=== PATIENT | male | born 1950 | race Caucasian/White ===

== ENCOUNTER 2016-11-14 16:00 | Emergency (ER) | payer OTHER ==
[~2016-11-14] VITALS: Ht 172.7 cm; Wt 148.0 kg
[~2016-11-14 16:00] MED LIST: BENI40TA3 PO; FURO1TAB62 PO; OXYC30TA62 PO
[2016-11-14 16:03] VITALS: BP 142/92; PULSE 92; RESP 16; TEMP 98.6; O2SAT 95
[2016-11-14] MEDS ORDERED: POTA1TAB4 PO (17:35)
[2016-11-14] MEDS ORDERED: CEPH-460 PO (17:47)
--- NOTE | 2016-11-14 17:57 | PD ---
HPI Chief Complaint: Skin Problem Time Seen by Provider: 17:47 Travel History International Travel<30 days: No Contact w/Intl Traveler<30days: No Traveled to known affect area: No History of Present Illness HPI 66-year-old male presents to the emergency room for evaluation of superficial skin tears to the left elbow and left calf that occurred just prior to arrival. Patient states he slipped out of a truck and cut his leg up against a metal bar. Does not know when he had his open wound. He did not fall and denies hitting his head or loss consciousness. Denies any significant pain or other injury. His cleaned the wounds thoroughly but states she could not get them to stop bleeding. Patient is not on any blood thinners. Last tetanus was 8 months ago. [facility] Past Medical History Anxiety: Yes Cardiovascular Problems: Yes (htn on meds) Hypertension: Yes Musculoskeletal: Yes (DJD;CHRONIC BACK PAIN with pain management) Past Surgical History Surgical History: No Previous Surgery Social History Alcohol Use: No Tobacco Use: No (quit 2 years ago) Substance Use: No Allergies-Medications (Allergen,Severity, Reaction): Coded Allergies: No Known Allergies (Verified , 11/14/16) Reported Meds & Prescriptions Reported Meds & Active Scripts Active Reported K-Tab (Potassium Chloride) 20 Meq Tab 20 Meq PO DAILY Benicar (Olmesartan) 40 Mg Tab 40 Mg PO DAILY Oxycontin (Oxycodone HCl) 30 Mg Tab 30 Mg PO QID NEB Lasix (Furosemide) 20 Mg Tab 20 Mg PO DAILY Review of Systems Except as stated in HPI: all other systems reviewed are Neg Physical Exam Narrative GENERAL: Well-nourished, morbidly obese male in no acute distress. Afebrile. Ambulatory. SKIN: Warm and dry. Superficial skin tear of left lower, posterior leg overlying chronic lower leg cellulitis. Skin is not well-approximated. Superficial skin tear of left posterior elbow over the olecranon. Skin revealed that was also not well approximated. HEAD: Normocephalic. EYES: No scleral icterus. No injection or drainage. NECK: Supple, trachea midline. No JVD or lymphadenopathy. Data Data Last Documented VS Vital Signs Date Time Temp Pulse Resp B/P Pulse Ox O2 Delivery O2 Flow Rate FiO2 11/14/16 16:03 98.6 92 16 142/92 95 Orders Wound Care (11/14/16 17:46) [facility] Medical Decision Making Medical Screen Exam Complete: Yes Emergency Medical Condition: Yes Medical Record Reviewed: Yes Differential Diagnosis Skin tear versus abrasion versus laceration Narrative Course 66-year-old male presents to the emergency room for evaluation of superficial skin tears to the left elbow and left calf that occurred just prior to arrival. Patient cut himself on a metal bar. He denies falling or any other injuries. Tetanus is up-to-date. Full range of motion of the left elbow. There is a 1 cm laceration that is extremely well approximated adjacent to the skin tear. This area was thoroughly cleansed and repaired using Steri-Strips and glue. Skin tear of the leg is overlying chronic cellulitis. For this, patient will be discharged with prescription for Keflex. Given wound care instructions and told to follow up with a primary care physician or return to the emergency room for worsening symptoms. He understands and agrees to this plan. Diagnosis Primary Impression: Skin tear of elbow without complication Qualified Code: S51.012A - Skin tear of elbow without complication, left, initial encounter Additional Impression: Skin tear of lower leg without complication Qualified Code: S81.812A - Skin tear of lower leg without complication, left, initial encounter Referrals: Primary Care Physician Patient Instructions: General Instructions, Skin Tear (ED) Additional Instructions: Rest and drink plenty of fluids. Keep wounds clean and dry. Apply triple antibiotic ointment and nonstick dressing daily. Take Keflex as directed, until gone. Follow-up with a primary care physician. Return to the emergency room for worsening symptoms. Med/Other Pt SpecificInfo: Prescription(s) given Scripts Cephalexin (Keflex)500 Mg [id number] Mg PO Q6H 7 Days Ref 0 Prov:Imani Deleon MD 11/14/16 Disposition: 01 DISCHARGE HOME Condition: Stable Ny Garcia Nov 14, 2016 17:56
== END 2016-11-14 18:52 | disposition home or self-care (01) ==
LOC: PHEFT 16:00
DX: S51.012A Laceration without foreign body of left elbow, initial encounter (principal); S81.812A Laceration without foreign body, left lower leg, initial encounter; I10 Essential (primary) hypertension; W45.8XXA Other foreign body or object entering through skin, initial encounter; W18.09XA Striking against other object with subsequent fall, initial encounter; Y93.89 Activity, other specified; Y92.89 Other specified places as the place of occurrence of the external cause; Y99.8 Other external cause status; Z87.891 Personal history of nicotine dependence
CPT/HCPCS: 99283

== ENCOUNTER 2017-10-04 17:47 | Emergency (ER) | payer OTHER ==
[~2017-10-04] VITALS: Ht 172.7 cm; Wt 156.6 kg
[~2017-10-04 17:47] MED LIST changes: +BENI40TA29 PO; -BENI40TA3 PO; +CEPH-460 PO; +POTA1TAB4 PO
[2017-10-04 17:52] VITALS: BP 138/73; PULSE 95; RESP 18; TEMP 98.2
[2017-10-04] MEDS ORDERED: VENTAER INH (18:32)
[2017-10-04] MEDS ORDERED: AZIT250T3 PO (18:32)
[2017-10-04] MEDS ORDERED: PRED20 PO (18:32)
--- NOTE | 2017-10-04 18:33 | PD ---
HPI Chief Complaint: Cold / Flu Symptoms Time Seen by Provider: 18:22 Travel History International Travel<30 days: No Contact w/Intl Traveler<30days: No Traveled to known affect area: No History of Present Illness HPI 66-year-old male here for evaluation of nonproductive cough and sore throat 4 days. He is reporting intermittent wheezing during coughing episodes. He denies fever but reports chills. He denies chest pain, shortness of breath. His was sick with bronchitis pneumonia last week. Symptoms severity moderate. No alleviating factors. PFSH Past Medical History Hx Anticoagulant Therapy: Yes (asa 81mg) Anxiety: Yes Cardiovascular Problems: Yes (htn on meds) Hypertension: Yes Medical other: Yes (BILATERAL LOWER EXTREMITY EDEMA/FLUID RETENTION) Musculoskeletal: Yes (DJD;CHRONIC BACK PAIN with pain management) Influenza Vaccination: No Social History Alcohol Use: No Tobacco Use: No (quit 2 years ago) Substance Use: No Allergies-Medications (Allergen,Severity, Reaction): Coded Allergies: No Known Allergies (Verified Adverse Reaction, Unknown, 10/04/17) Reported Meds & Prescriptions Reported Meds & Active Scripts Active Reported Benicar (Olmesartan) 40 Mg Tab 40 Mg PO DAILY Review of Systems Except as stated in HPI: all other systems reviewed are Neg General / Constitutional: Positive: Chills Cardiovascular: No: Chest Pain or Discomfort Respiratory: Positive: Cough, Wheezing Gastrointestinal: Positive: Nausea Genitourinary: No: Dysuria Physical Exam Narrative GENERAL: Well-nourished, well-developed patient. Patient nontoxic appearing SKIN: Focused skin assessment warm/dry. HEAD: Normocephalic. EYES: No scleral icterus. No injection or drainage. THROAT: Posterior pharyngeal erythema. No a exudate. NECK: Supple, trachea midline. No JVD or lymphadenopathy. CARDIOVASCULAR: Regular rate and rhythm without murmurs, gallops, or rubs. RESPIRATORY: Breath sounds equal bilaterally. No accessory muscle use. Questionable rhonchi. GASTROINTESTINAL: Abdomen soft, non-tender, nondistended. Data Data Last Documented VS Vital Signs Date Time Temp Pulse Resp B/P (MAP) Pulse Ox O2 Delivery O2 Flow Rate FiO2 10/04/17 17:52 98.2 95 18 138/73 (94) MDM Medical Decision Making Medical Screen Exam Complete: Yes Emergency Medical Condition: Yes Differential Diagnosis Bronchitis, pneumonia, influenza Narrative Course 66-year-old male here with productive cough and reported wheezing has 4 days. Patient is well-appearing. His vital signs are stable. He has questionable rhonchi on exam. Patient was treated for bronchitis Diagnosis Primary Impression: Bronchitis Referrals: Primary Care Physician Additional Instructions: Stay well hydrated by drinking plenty of fluids. Follow-up the primary doctor for recheck. Return if he developed new or worsening symptoms. Scripts Albuterol 18 GM Inh (Ventolin Hfa 18 GM Inh) 90 Mcg/Act Aer 2 PUFF INH Q4H Y for SHORTNESS OF BREATH, #1 INHALER 0 Refills Prov: Eliana Jaramillo 10/04/17 Prednisone (Prednisone) 20 Mg Tab 40 MG PO DAILY, #8 TAB 0 Refills Take 40 mg (2 tablets) daily for 5 days Prov: Eliana Jaramillo 10/04/17 Azithromycin (Azithromycin) 250 Mg Tab 250 MG PO DIRECTED for Infection, #6 TAB 0 Refills Take 2 tabs (500 mg) on day 1 then 1 tab daily x 4 days. Prov: Eliana Jaramillo 10/04/17 Disposition: 01 DISCHARGE HOME Condition: Stable Eliana Jaramillo Oct 04, 2017 18:33
== END 2017-10-04 18:38 | disposition home or self-care (01) ==
LOC: PHEFT 17:47
DX: J40 Bronchitis, not specified as acute or chronic (principal); Z79.82 Long term (current) use of aspirin; I10 Essential (primary) hypertension
CPT/HCPCS: 99284

== ENCOUNTER 2018-01-26 12:28 | Emergency (ER) | payer OTHER ==
[~2018-01-26 12:28] MED LIST changes: +AZIT250T3 PO; -CEPH-460 PO; -FURO1TAB62 PO; -OXYC30TA62 PO; -POTA1TAB4 PO; +PRED20 PO; +VENTAER INH
[2018-01-26 13:06] VITALS: BP 144/70; PULSE 80; RESP 22; TEMP 97.7; O2SAT 94
[2018-01-26] MEDS ORDERED: OXYC30TA PO (14:31)
[2018-01-26] MEDS ORDERED: FURO1TAB62 PO (14:32)
[2018-01-26] MEDS ORDERED: CLIN150C14 PO (14:54)
[2018-01-26] MEDS ORDERED: LIDOCAINE HCL 1% PF 30 ML VIAL INFIL ONE (15:00)
[2018-01-26] MEDS ORDERED: CLINDAMYCIN 150 MG CAP PO SCH (15:00)
[2018-01-26] MEDS ORDERED: SULFAMETHOXAZOLE-TRIMETHOPRIM DS 800-160 MG TAB PO ONE (15:00)
[2018-01-26] MEDS ORDERED: CEPHALEXIN MONOHYDRATE 500 MG CAP PO ONE (15:00)
[2018-01-26] MEDS ORDERED: TETANUS/DIPHTHERIA TOXOID ADULT 0.5 ML VIAL IM ONE (15:00)
--- NOTE | 2018-01-26 15:06 | PD ---
HPI Chief Complaint: Skin Problem Time Seen by Provider: 14:38 Travel History International Travel<30 days: No Contact w/Intl Traveler<30days: No Traveled to known affect area: No History of Present Illness HPI 67-year-old male with PMH of DM presents to the ED for evaluation of less than 8 hour history of pus filled blister of the left anterior garcia. Patient states that he saw a spider in the area and smashed it with a flip-flop this morning. He was not able to identify the type of spider. He states that about an hour later after he got out of the shower he noticed a pus filled blister on the anterior aspect of the knee with surrounding erythema. He denies fevers, chills , nausea, vomiting. He is unsure of the date of his last tetanus immunization. No treatment attempted at home. PFSH Past Medical History Hx Anticoagulant Therapy: Yes (asa 81mg) Anxiety: Yes Cardiovascular Problems: Yes (htn on meds) Hypertension: Yes Musculoskeletal: Yes (DJD;CHRONIC BACK PAIN with pain management) Social History Alcohol Use: No Tobacco Use: No (quit 2 years ago) Substance Use: No Allergies-Medications (Allergen,Severity, Reaction): Coded Allergies: No Known Allergies (Verified Adverse Reaction, Unknown, 10/04/17) Reported Meds & Prescriptions Reported Meds & Active Scripts Active Clindamycin (Clindamycin HCl) 150 Mg Cap 450 Mg PO Q6H 7 Days Ventolin Hfa 18 GM Inh (Albuterol Sulfate) 90 Mcg/Act Aer 2 Puff INH Q4H PRN Reported Lasix (Furosemide) 20 Mg Tab 20 Mg PO BID Oxycodone (Oxycodone HCl) 30 Mg Tab 30 Mg PO Q6H PRN Benicar (Olmesartan) 40 Mg Tab 40 Mg PO DAILY Review of Systems Except as stated in HPI: all other systems reviewed are Neg Physical Exam Narrative GENERAL: Well-nourished, well-developed obese white male in no acute distress. SKIN: Focused skin assessment warm/dry. Chronic skin changes of the bilateral lower legs. SKIN: There is an indurated area in the left anterior garcia which measures about 1 cm in diameter. It is fluctuant but there is no pointing or drainage. There is a zone of inflammation around it but no lymphangitis. The crepitus noted. HEAD: Normocephalic. EYES: No scleral icterus. No injection or drainage. NECK: Supple, trachea midline. No JVD or lymphadenopathy. CARDIOVASCULAR: Regular rate and rhythm without murmurs, gallops, or rubs. RESPIRATORY: Breath sounds equal bilaterally. No accessory muscle use. GASTROINTESTINAL: Abdomen soft, non-tender, nondistended. MUSCULOSKELETAL: No cyanosis, or edema. BACK: Nontender without obvious deformity. No CVA tenderness. Data Data Last Documented VS Vital Signs Date Time Temp Pulse Resp B/P (MAP) Pulse Ox O2 Delivery O2 Flow Rate FiO2 01/26/18 13:06 97.7 80 22 144/70 (94) 94 Orders Orders Tetanus/Diphtheria Tox Adult (Tetanus/Di (01/26/18 15:00) Lidocaine Pf 1% Inj (Xylocaine-Mpf 1% In (01/26/18 15:00) Abscess Culture And Gram Stain (01/26/18 14:50) Clindamycin (Cleocin) (01/26/18 15:00) MDM Medical Decision Making Medical Screen Exam Complete: Yes Emergency Medical Condition: Yes Differential Diagnosis Abscess versus cellulitis versus needed for tetanus immunization versus other Narrative Course 67-year-old male with PMH of DM presents to the ED for evaluation of less than 8 hour history of pus filled blister of the left anterior garcia. Patient states that he saw a spider in the area and smashed it with a flip-flop this morning. He was not able to identify the type of spider. He states that about an hour later after he got out of the shower he noticed a pus filled blister on the anterior aspect of the knee with surrounding erythema. He denies fevers, chills , nausea, vomiting. He is unsure of the date of his last tetanus immunization. Vitals reviewed. On exam is an obese white male with chronic skin changes in the bilateral lower extremities. There is also an area consistent with abscess of the anterior left garcia. I&D was performed. Please see my procedure note for details. Patient's prescribed clindamycin 450 3 times a day 7 days, first dose administered in the ED. Tetanus immunization was updated. I emphasized the importance of following up giving his risk factor of diabetes. He is instructed return to the ED for worsening symptoms, otherwise follow with the primary care provider. He is stable and discharged home. Diagnosis Primary Impression: Abscess of left lower leg Referrals: Primary Care Physician Additional Instructions: Keep wound clean, dry and covered. Do not remove the dressing for 24 hours. After that water may run over the wound but do not submerge the wound. Monitor for signs of infection as discussed. Follow up with primary care provider. Return to the ED for worsening symptoms or any urgent or emergent medical condition. Med/Other Pt SpecificInfo: Prescription(s) given Scripts Clindamycin (Clindamycin) 150 Mg Cap 450 MG PO Q6H for Infection for 7 Days, #84 CAP 0 Refills Prov: Ye Mendoza MD 01/26/18 Disposition: 01 DISCHARGE HOME Condition: Stable Halle Gaytan Jan 26, 2018 15:06
== END 2018-01-26 15:14 | disposition home or self-care (01) ==
LOC: NED 12:28 → NEPK 15:14
DX: L02.416 Cutaneous abscess of left lower limb (principal); B96.89 Other specified bacterial agents as the cause of diseases classified elsewhere; E11.9 Type 2 diabetes mellitus without complications; F41.9 Anxiety disorder, unspecified; I10 Essential (primary) hypertension; Z23 Encounter for immunization; Z87.891 Personal history of nicotine dependence; Z79.51 Long term (current) use of inhaled steroids; Z79.899 Other long term (current) drug therapy
CPT/HCPCS: 86403; 87070; 87186; 87205; 90471; 90714